=== PATIENT | male | born 1945 | race Caucasian/White ===

== ENCOUNTER 2016-12-29 15:09 | Emergency (ER) | payer MEDICARE, OTHER ==
[2016-12-29 18:08] LABS: BASOPHIL 0.2 % (0-2); BILIRUBIN NEGATIVE (NEGATIVE); BLOOD NEGATIVE Ery/uL (NEGATIVE); CLARITY CLEAR (CLEAR); COLOR COLORLESS (YELLOW); EOSINOPHIL 5.3 % (0-7); GLUCOSE (U) NORMAL (NORMAL); HCT 43.8 % (42.0-52.0); HGB 15.5 g/dl (13.2-18.0); KETONE (U) NEGATIVE (NEGATIVE); LEUKOCYTES NEGATIVE Leu/uL (NEGATIVE); LYMPHOCYTE 22.5 % (15-48); MCH 31.2 pg (25.0-31.0); MCHC 35.4 g/dL (32.0-36.0); MCV 88.1 fL (78.0-100.0); MONOCYTE 8.2 % (0-12); MPV 11.3 fL (6.0-9.5); NEUTROPHIL 63.8 % (41-80); NITRITE NEGATIVE (NEGATIVE); PLT 175 K/uL (150-400); PROTEIN NEGATIVE (NEGATIVE); RBC 4.97 M/uL (4.70-6.00); RDW 12.5 % (11.5-14.0); UROBILINOGEN 0.2 mg/dL (0.2-1.0); WBC 9.2 K/uL (4.0-10.5)
[2016-12-29 18:34] LABS: CKMB 2.68 ng/mL (0.97-4.94); TROPONIN T < 0.010 ng/mL
[2016-12-29 18:37] LABS: ALBUMIN 4.5 g/dL (3.4-4.8); BILIRUBIN - TOTAL 0.3 mg/dL (0.1-1.0); GLOBULIN (CALCULATION) 2.6 g/dL (2.2-4.2); POTASSIUM 3.9 mmol/L (3.5-5.1); TOTAL PROTEIN 7.1 g/dL (6.4-8.3)
== END 2016-12-29 19:19 | disposition home or self-care (01) ==
LOC: FER 15:09
PROVIDERS: Emergency Medicine
DX: I10 Essential (primary) hypertension (principal); N40.0 Benign prostatic hyperplasia without lower urinary tract symptoms; Z79.899 Other long term (current) drug therapy
CPT/HCPCS: 36415; 71020; 80053; 81003; 82550; 82553; 84484; 85025; 93005

== ENCOUNTER 2021-06-02 12:19 | Emergency (ER) | payer MEDICARE, OTHER ==
[~2021-06-02 12:19] MED LIST: CIPRODEX OTIC7.5 ML AU
[2021-06-02 15:32] LABS: BILIRUBIN NEGATIVE (NEGATIVE); BLOOD 2+ Ery/uL (NEGATIVE); CLARITY CLEAR (CLEAR); COLOR YELLOW (YELLOW); GLUCOSE (U) NORMAL (NORMAL); LEUKOCYTES 2+ Leu/uL (NEGATIVE); NITRITE NEGATIVE (NEGATIVE); PROTEIN NEGATIVE (NEGATIVE); UROBILINOGEN 0.2 mg/dL (0.2-1.0)
[2021-06-02 15:35] LABS: BACTERIA 3+
[2021-06-02 15:59] LABS: BASOPHIL 0.2 % (0-2); EOSINOPHIL 0 % (0-7); HCT 46.3 % (42.0-52.0); MCH 30.9 pg (25.0-31.0); MCHC 34.6 g/dL (32.0-36.0); MCV 89.6 fL (78.0-100.0); MONOCYTE 5.4 % (0-12); MPV 11.4 fL (6.0-9.5); NEUTROPHIL 87.8 % (41-80); NRBC 0; PLT 185 K/uL (150-400); RBC 5.17 M/uL (4.70-6.00); RDW 12.2 % (11.5-14.0); WBC 21.7 K/uL (4.0-10.5)
[2021-06-02 16:15] LABS: ALBUMIN 3.7 g/dL (3.4-5.0); BUN/CREAT RATIO (CALC) 7.5 RATIO; CREATININE 1.06 mg/dL (0.67-1.17); GLOBULIN (CALCULATION) 3.3 g/dL; MAGNESIUM 1.7 mg/dL (1.8-2.4); POTASSIUM 3.5 mmol/L (3.5-5.1)
[2021-06-02 16:17] LABS: LACTIC ACID 1.4 mmol/L (0.4-1.9)
[2021-06-02] MEDS ORDERED: LEVAQUIN500 MG PO (21:13)
[2021-06-02] MEDS ORDERED: ONDANSETRON ODT4 MG PO (21:13)
== END 2021-06-02 21:50 | disposition home or self-care (01) ==
LOC: FER 12:19
PROVIDERS: Emergency Medicine
DX: N30.90 Cystitis, unspecified without hematuria (principal)
CPT/HCPCS: 36415; 80053; 81001; 83605; 83690; 83735; 84145; 85025; 87040; J0696; J1170; J2405; J2543; J7030; Q9967